=== PATIENT | male | born 1990 | race American Indian/Alaskan Native ===

== ENCOUNTER 2019-03-27 19:47 | Emergency (ER) | payer OTHER ==
[2019-03-27 19:51] VITALS: BP 125/71
--- NOTE | 2019-03-27 20:04 | Emergency Department Report ---
Blank Doc - Documentation Documentation: 29-year-old male that presents with body aches, dizziness, and fever. This initial assessment/diagnostic orders/clinical plan/treatment(s) is/are subject to change based on patient's health status, clinical progression and re- assessment by fellow clinical providers in the ED. Further treatment and workup at subsequent clinical providers discretion. Patient/guardians urged not to elope from the ED as their condition may be serious if not clinically assessed and managed. Initial orders include: 1- Patient sent to [facility] for further evaluation and treatment 2-labs 3- flu swab
[2019-03-27 20:21] LABS: Basophils % (Auto) 0.3 % (0.0-1.8); Eosinophils % (Auto) 0.4 % (0.0-4.3); Hemoglobin 14.7 gm/dl (11.8-15.2); Lymphocytes # (Auto) 1.2 K/mm3 (1.2-5.4); Lymphocytes % (Auto) 21.3 % (13.4-35.0); Mean Corpuscular HGB Conc 33 % (32-34); Mean Corpuscular Volume 86 fl (84-94); Monocytes # (Auto) 0.7 K/mm3 (0.0-0.8); Monocytes % (Auto) 12.5 % (0.0-7.3); Platelet Count 233 K/mm3 (140-440); Red Blood Count 5.13 M/mm3 (3.65-5.03); Red Cell Distribution Width 13.4 % (13.2-15.2)
[2019-03-27 20:41] LABS: Alanine Aminotransferase 27 units/L (7-56); Albumin 4.6 g/dL (3.9-5); BUN/Creatinine Ratio 12; Blood Urea Nitrogen 16 mg/dL (9-20); Hemolysis Index 9
--- NOTE | 2019-03-27 20:48 | Emergency Department Report ---
ED Fever HPI - General Chief Complaint: Fever Stated Complaint: FLU SX Time Seen by Provider: 03/27/19 20:02 Source: patient Exam Limitations: no limitations - History of Present Illness Initial Comments: 29-year-old male that presents with body aches, dizziness, and fever. Patient reports that he is currently being treated for sinus infection. Patient also states that the person he was with yesterday tested positive for influenza. Patient has taken nothing for his fever or pain. Patient denies any cough. Timing/Duration: this morning Fever Severity/Quality: low grade Associated Symptoms: weakness, other (body aches) ED Review of Systems ROS: Stated complaint: FLU SX Other details as noted in HPI Comment: All other systems reviewed and negative Constitutional: fever, malaise, weakness ED Past Medical Hx - Past Medical History Previous Medical History?: Yes Additional medical history: Borderline Diabetes - Surgical History Past Surgical History?: No - Social History Smoking Status: Never Smoker Substance Use Type: None - Medications Home Medications: Home Medications Medication Instructions Recorded Confirmed Last Taken Type Oseltamivir [Tamiflu] 75 mg PO BID #10 cap 03/27/19 Unknown Rx ED Physical Exam - General Limitations: No Limitations General appearance: alert, in no apparent distress - Head Head exam: Present: atraumatic, normocephalic - Eye Eye exam: Present: normal appearance - ENT ENT exam: Present: mucous membranes moist - Neck Neck exam: Present: normal inspection - Respiratory Respiratory exam: Present: normal lung sounds bilaterally. Absent: respiratory distress - Cardiovascular Cardiovascular Exam: Present: regular rate, normal rhythm. Absent: systolic murmur, diastolic murmur, rubs, gallop - GI/Abdominal GI/Abdominal exam: Present: soft, normal bowel sounds - Rectal Rectal exam: Present: deferred - Extremities Exam Extremities exam: Present: normal inspection - Back Exam Back exam: Present: normal inspection - Neurological Exam Neurological exam: Present: alert, oriented X3 - Psychiatric Psychiatric exam: Present: normal affect, normal mood - Skin Skin exam: Present: warm, dry, intact, normal color. Absent: rash ED Course Vital Signs 03/27/19 03/27/19 19:50 19:58 Temperature 100.0 F H 100.0 F H Pulse Rate 100 H 96 H Respiratory 18 18 Rate Blood Pressure 125/71 125/71 O2 Sat by Pulse 98 100 Oximetry ED Medical Decision Making - Lab Data Result diagrams: 03/27/19 20:12 03/27/19 20:12 - Medical Decision Making 29-year-old male that presents with body aches, dizziness, and fever. Patient reports that he is currently being treated for sinus infection. Patient also states that the person he was with yesterday tested positive for influenza. Patient has taken nothing for his fever or pain. Patient denies any cough. Critical care attestation.: If time is entered above; I have spent that time in minutes in the direct care of this critically ill patient, excluding procedure time. ED Disposition Clinical Impression: Acute viral syndrome Disposition: DC-01 TO HOME OR SELFCARE Is pt being admited?: No Does the pt Need Aspirin: No Condition: Stable Instructions: Viral Syndrome (ED) Prescriptions: Oseltamivir [Tamiflu] 75 mg PO BID #10 cap Referrals: Your,provider [Other] - 3-5 Days Forms: Work/School Release Form(ED)
== END 2019-03-27 21:18 | disposition home or self-care (01) ==
LOC: ED 19:47
DX: B34.9 Viral infection, unspecified (principal); R73.03 Prediabetes; Z79.899 Other long term (current) drug therapy
CPT/HCPCS: 36415; 80053; 85025